=== PATIENT | female | born 1945 | race Asian ===

== ENCOUNTER 2020-02-16 12:00 | Emergency (ER) | payer MEDICARE, OTHER ==
[~2020-02-16] VITALS: Ht 147.3 cm; Wt 59.0 kg
[~2020-02-16 12:00] MED LIST: DYRENIUM50 MG PO; KLOR-CON 1010 MEQ PO; LIPITOR 20 MG T20 M1 PO; MAXZIDE-25 MG1 EACH PO; METFORMIN HCL500 MG PO; TOBREX3.5 GM OP; ZESTRIL5 MG PO
[2020-02-16] MEDS ORDERED: MEDROLDOSEPACK PO (13:00)
[2020-02-16] MEDS ORDERED: TESSALON PERLE100 MG PO (13:00)
[2020-02-16] MEDS ORDERED: Z-TUSS AC 2 MG118 ML PO (13:00)
[2020-02-16] MEDS ORDERED: PROAIR HFA8.5 GM INH (13:00)
[2020-02-16 13:14] VITALS: BP 124/65
== END 2020-02-16 13:15 | disposition home or self-care (01) ==
LOC: M.ERS 12:00
DX: U07.1 COVID-19 (principal); E11.9 Type 2 diabetes mellitus without complications; E78.5 Hyperlipidemia, unspecified

== ENCOUNTER 2020-02-21 09:49 | Emergency (ER) | payer MEDICARE, OTHER ==
[~2020-02-21] VITALS: Ht 147.3 cm; Wt 59.0 kg
[~2020-02-21 09:49] MED LIST changes: +MEDROLDOSEPACK PO; +PROAIR HFA8.5 GM INH; +TESSALON PERLE100 MG PO; +Z-TUSS AC 2 MG118 ML PO
[2020-02-21] MEDS ORDERED: OMEPRAZOLE 20 M20 M1 PO (10:03)
[2020-02-21] MEDS ORDERED: HYDROCHLOROTHIA25 M2 PO (10:03)
[2020-02-21] MEDS ORDERED: ALLOPURINOL 10100 M3 PO (10:03)
[2020-02-21 10:27] LABS: ABSOLUTE LYMPHOCYTES 2.9 thou/uL (0.8-5.3); ABSOLUTE MONOCYTES 0.9 thou/uL (0.0-1.2); ABSOLUTE NEUTROPHILS 6.7 thou/uL (1.6-8.1); BASOPHILS 0.4 %; EOSINOPHILS 0.4 %; HEMATOCRIT 30.7 % (37.0-47.0); MCH 34.5 pg (26.0-34.0); MCHC 35.7 g/dL (28.0-37.0); MCV 96.5 fL (80.0-100.0); MONOCYTES 8.8 %; MPV 6.7 fl. (7.2-11.1); NUCLEATED RBCS 0 /100WBC; PLATELET COUNT* 491 thou/uL (150-400); POLYS 63.4 %; RBC 3.18 mil/uL (4.20-5.00); RDW-CV 12.7 % (10.5-14.5); WBC 10.7 thou/uL (4.0-11.0)
[2020-02-21 10:33] LABS: BE 3.1 mmol/L (-2 to +3); PCO2 39.3 mmHg (35.0-45.0); PO2 81.5 mmHg (75.0-100.0); pH 7.457 (7.340-7.450)
[2020-02-21 10:38] LABS: APTT 23.3 Seconds (25.0-31.3); CALCIUM 8.6 mg/dL (8.5-10.1); CREATININE 1.1 mg/dL (0.6-1.3); POTASSIUM 3.8 mmol/L (3.5-5.1); PROTIME 10.4 Seconds (9.20-11.50)
[2020-02-21 10:42] LABS: ALBUMIN 3.5 g/dL (3.4-5.0); TOTAL BILIRUBIN 0.5 mg/dL (<0.1-1.0); TOTAL PROTEIN 7.5 g/dL (6.4-8.2)
[2020-02-21 11:53] LABS: URINE BILIRUBIN NEGATIVE (Negative); URINE BLOOD NEGATIVE (Negative); URINE CLARITY CLEAR; URINE COLOR YELLOW; URINE GLUCOSE-RANDOM NEGATIVE (Negative); URINE KETONES NEGATIVE (Negative); URINE LEUKOCYTES-REFLEX TRACE (Negative); URINE NITRITE-REFLEX NEGATIVE (Negative); URINE PROTEIN NEGATIVE (Negative); URINE UROBILINOGEN 0.2 E.U./dl (0.2-1.0)
[2020-02-21] MEDS ORDERED: ZPAK PO (12:00)
[2020-02-21 12:01] LABS: BACTERIA-REFLEX 1-9 Few /HPF (None Seen); CASTS None Seen /LPF (None Seen); CRYSTALS None Seen /LPF (None Seen); MUCUS None Seen strn/LPF (None Seen); SQUAMOUS 4-10 Moderate /LPF (0-3); URINE RBC 0-2 Rare /HPF (0-2); URINE WBC-REFLEX 0-5 Rare /HPF (0-5)
[2020-02-21] MEDS ORDERED: PREDNISONE 20 M20 MG PO (12:01)
[2020-02-21] MEDS ORDERED: PROMETHAZINE-C473 ML PO (12:01)
[2020-02-21] MEDS ORDERED: VENTOLIN HFA 1818 GM INH (12:01)
[2020-02-21 12:14] VITALS: BP 120/67
--- NOTE | 2020-02-21 16:40 | EKG ---
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
== END 2020-02-21 12:14 | disposition home or self-care (01) ==
LOC: M.ERS 09:49
PROVIDERS: Personal Emergency Response Attendant
DX: J18.9 Pneumonia, unspecified organism (principal); Z20.828 Contact with and (suspected) exposure to other viral communicable diseases; M19.90 Unspecified osteoarthritis, unspecified site; E11.9 Type 2 diabetes mellitus without complications; E78.5 Hyperlipidemia, unspecified

== ENCOUNTER 2020-03-03 10:41 | Emergency (ER) | payer MEDICARE, OTHER ==
[~2020-03-03] VITALS: Ht 147.3 cm; Wt 59.0 kg
[~2020-03-03 10:41] MED LIST changes: +ALLOPURINOL 10100 M3 PO; +HYDROCHLOROTHIA25 M2 PO; +OMEPRAZOLE 20 M20 M1 PO; +PREDNISONE 20 M20 MG PO; +PROMETHAZINE-C473 ML PO; +VENTOLIN HFA 1818 GM INH; +ZPAK PO
[2020-03-03 11:26] LABS: ABSOLUTE EOSINOPHILS 0.2 thou/uL (0.0-0.7); ABSOLUTE LYMPHOCYTES 1.7 thou/uL (0.8-5.3); ABSOLUTE MONOCYTES 0.7 thou/uL (0.0-1.2); ABSOLUTE NEUTROPHILS 2.2 thou/uL (1.6-8.1); EOSINOPHILS 4.3 %; HEMOGLOBIN 9.9 gm/dL (12.0-15.0); LYMPHOCYTES 34.6 %; MCH 35.2 pg (26.0-34.0); MCHC 35.4 g/dL (28.0-37.0); MCV 99.7 fL (80.0-100.0); MONOCYTES 14.5 %; MPV 6.5 fl. (7.2-11.1); NUCLEATED RBCS 0 /100WBC; PLATELET COUNT* 217 thou/uL (150-400); POLYS 45.6 %; RBC 2.81 mil/uL (4.20-5.00); RDW-CV 13.3 % (10.5-14.5); WBC 4.8 thou/uL (4.0-11.0)
[2020-03-03 11:46] LABS: INFLUENZA A ANTIGEN Negative (Negative); INFLUENZA B ANTIGEN Negative (Negative)
[2020-03-03 11:51] LABS: CALCIUM 8.8 mg/dL (8.5-10.1); CREATININE 1.2 mg/dL (0.6-1.3); POTASSIUM 3.8 mmol/L (3.5-5.1)
[2020-03-03] MEDS ORDERED: DOXYCYCLINE 10100 MG PO (13:35)
[2020-03-03] MEDS ORDERED: VENTOLIN HFA 1818 GM INH (13:35)
[2020-03-03] MEDS ORDERED: MEDROLDOSEPACK PO (13:35)
[2020-03-03 14:23] VITALS: BP 112/60
--- NOTE | 2020-03-03 17:21 | EKG ---
[place] [address] ELECTROCARDIOGRAM REPORT Name: FRANSICO DILLON [id number] Admission: 03/03/20 Attend Phys: Discharge: 03/03/20 Date of : 47 Date of Service: 03/03/20 1131 Report #: [id number] THIS REPORT FOR: //name// 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1945 Requested By: Chela Leblanc Order Number: [id number] MD: Paul Gaines Measurements Intervals [place] Rate: 77 P: 38 [place]: 184 QRS: 40 QRSD: 94 T: 47 QT: 370 QTc: 419 Interpretive Statements Sinus rhythm Low voltage, precordial leads Baseline wander in lead(s) V5,V6 Compared to ECG 02/21/2020 10:26:38 Low QRS voltage now present Electronically Signed On 03-03-2020 17:21:06 CDT by Paul Gaines [email or web address] <ELECTRONICALLY SIGNED> By: Paul Gaines MD, FACC 03/03/20 1721 1131 1131 Paul Gaines MD, [facility] /EPI
== END 2020-03-03 14:23 | disposition home or self-care (01) ==
LOC: M.ERS 10:41
PROVIDERS: Nurse Practitioner Family
DX: J18.9 Pneumonia, unspecified organism (principal); Z20.828 Contact with and (suspected) exposure to other viral communicable diseases; E11.9 Type 2 diabetes mellitus without complications; E78.5 Hyperlipidemia, unspecified; M10.9 Gout, unspecified; M19.90 Unspecified osteoarthritis, unspecified site; Z79.899 Other long term (current) drug therapy

== ENCOUNTER → 2020-04-22 | Outpatient (CLI) | payer MEDICARE, OTHER ==
[~2020-04-22] MED LIST changes: +DOXYCYCLINE 10100 MG PO
--- NOTE | 2020-04-22 13:27 | 2DMMODE ---
[place] [address] 2 D/M-MODE ECHOCARDIOGRAM Name: FRANSICO DILLON Room: [facility]#: [id number] Admission: 04/22/20 Attend Phys: David Puckett, Discharge: Date of : 47 Date of Service: 04/22/20 1327 Report #: [id number] THIS REPORT FOR: cc: David Puckett MD, Dean L. MD Blick,Homar Montano MD [facility] ~ APPROVED REPORT Study performed: 04/22/2020 11:02:32 EXAM: Comprehensive 2D, Doppler, and color-flow Echocardiogram Patient Location: Out-Patient BSA: 1.50 HR: 82 bpm BP: 122/58 mmHg Other Information Study Quality: Good Indications Dyspnea 2D Dimensions IVSd: 8.02 (7-11mm) LVOT Diam: 18.51 (18-24mm) LVDd: 44.92 mm PWd: 10.30 (7-11mm) Ascending Ao: 28.96 (22-36mm) LVDs: 27.81 (25-40mm) Aortic Root: 29.35 mm Volumes Left Atrial Volume (Systole) LA ESV Index: 13.40 mL/m2 Aortic Valve AoV Peak Sohail.: 1.12 m/s AO Peak Gr.: 5.06 mmHg LVOT Max P.34 mmHg AO Mean Gr.: 2.63 mmHg LVOT Mean P.12 mmHg LVOT Max V: 0.76 m/s AO V2 VTI: 24.25 cm LVOT Mean V: 0.49 m/s CYNDIE (VTI): 1.94 cm2 LVOT V1 VTI: 17.48 cm AI Bland: 1.87 m/s2 AI PHT: 558.26 [place] [address] 2 D/M-MODE ECHOCARDIOGRAM Name: FRANSICO DILLON VENESSA Room: [facility]#: [id number] Admission: 04/22/20 Attend Phys: David Puckett, Discharge: Date of : 47 Date of Service: 04/22/20 1327 Report #: [id number] Mitral Valve E/A Ratio: 0.68 MV Decel. Time: 182.33 ms MV E Max Sohail.: 0.43 m/s MV PHT: 52.88 ms MVA (PHT): 4.16 cm2 TDI E/Lateral E': 6.14 E/Medial E': 7.17 Medial E' Sohail.: 0.06 m/s Lateral E' Sohail.: 0.07 m/s Pulmonary Valve PV Peak Sohail.: 0.85 m/s PV Peak Gr.: 2.87 mmHg Tricuspid Valve RAP Estimate: 5.00 mmHg TR Peak Gr.: 15.30 mmHg RVSP: 20.30 mmHg PA Pressure: 20.30 mmHg Left Ventricle The left ventricle is normal size. There is normal LV segmental wall motion. There is normal left ventricular wall thickness. Left ventricular systolic function is normal. The left ventricular ejection fraction is within the normal range. LVEF is 55-60%. Grade I - abnormal relaxation pattern. Right Ventricle The right ventricle is normal size. The right ventricular systolic function is normal. Atria The left atrium size is normal. The right atrium size is normal. Aortic Valve The aortic valve is normal in structure. Mild aortic regurgitation. There is no aortic valvular stenosis. Mitral Valve The mitral valve is normal in structure. There is no mitral valve regurgitation noted. No evidence of mitral valve stenosis. Tricuspid Valve The tricuspid valve is normal in structure. Mild [place] [address] 2 D/M-MODE ECHOCARDIOGRAM Name: FRANSICO DILLON Room: [facility]#: [id number] Admission: 04/22/20 Attend Phys: David Puckett, Discharge: Date of : 47 Date of Service: 04/22/20 1327 Report #: [id number] Pulmonic Valve Pulmonic valve is not well visualized. There is trace pulmonic valvular regurgitation. Great Vessels The aortic root is normal in size. IVC is normal in size and collapses >50% with inspiration. Pericardium There is no pericardial effusion. <Conclusion> LVEF is 55-60%. Mild aortic regurgitation. <ELECTRONICALLY SIGNED> By: Homar Snider MD, FACC 04/22/20 1327 26 26 Homar Snider MD, FACC /INF
== END ==
LOC: M.CRD 04-15 10:30
PROVIDERS: ATTEND Internal Medicine
DX: I08.2 Rheumatic disorders of both aortic and tricuspid valves (principal); J84.10 Pulmonary fibrosis, unspecified; J15.8 Pneumonia due to other specified bacteria

== ENCOUNTER → 2020-05-11 | Outpatient (CLI) | payer MEDICARE, OTHER | LOC: M.ULTRA 15:24 | PROVIDERS: ATTEND Internal Medicine Critical Care Medicine | DX: M79.604 Pain in right leg (principal) ==

== ENCOUNTER → 2020-05-12 | Outpatient (CLI) | payer MEDICARE, OTHER | LOC: M.RAD 15:38 | PROVIDERS: ATTEND Internal Medicine | DX: M19.011 Primary osteoarthritis, right shoulder (principal); M16.11 Unilateral primary osteoarthritis, right hip; M79.604 Pain in right leg; G89.29 Other chronic pain ==

== ENCOUNTER → 2020-07-09 | Outpatient (CLI) | payer MEDICARE, OTHER ==
--- NOTE | 2020-07-13 08:24 | PF ---
[address] [address] PULMONARY FUNCTION REPORT Name: FRANSICO DILLON Room: [facility]#: [id number] Admission: 07/09/20 Attend Phys: Ha Kim MD Discharge: Date of : 47 Report #: [id number] THIS REPORT FOR: cc: David Puckett MD, Dean L. MD ~ Ha Kim MD DATE OF SERVICE: 07/09/2020 The FEV1/FVC ratio is decreased to 66% with an FVC normal at 106% and FEV1 normal at 94%. The LDK31-22 is also normal at 49%. After the administration of a bronchodilator, there is a 16% increase in FEV1 to 1.78 liters FEV1 post-bronchodilator. The KLX78-87 also increases by 48% after the administration of a bronchodilator. The patient's spirometry in fact is noted to be essentially normalized after the administration of bronchodilator. The total lung capacity is normal at 94% with a residual volume mildly decreased to 76%. The DLCO as adjusted for hemoglobin is decreased to 58%. IMPRESSION: 1. Mild obstruction with evidence of reversibility. 2. Essentially normal lung volumes with the exception of mild decrease in residual volume to 76%. This may be a normal variant or could indicate minimal restriction. 3. The DLCO as adjusted for hemoglobin is decreased to 58%. <ELECTRONICALLY SIGNED> By: Ha Kim MD 07/13/20 0824 2004 [id number] pola Melendez
== END ==
LOC: M.CT 06-30 09:09
PROVIDERS: ATTEND Internal Medicine Critical Care Medicine
DX: J98.4 Other disorders of lung (principal); R91.8 Other nonspecific abnormal finding of lung field

== ENCOUNTER → 2020-12-02 | Outpatient (CLI) | payer MEDICARE, OTHER | LOC: M.CT 09:18 | PROVIDERS: ATTEND Internal Medicine Critical Care Medicine | DX: R91.1 Solitary pulmonary nodule (principal); J98.11 Atelectasis; R91.8 Other nonspecific abnormal finding of lung field ==